=== PATIENT | male | born 1945 | race Caucasian/White ===

== ENCOUNTER 2020-05-29 16:41 | Emergency (ER) | payer MEDICARE, BC ==
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
[2020-05-29 21:39] VITALS: BP 135/82
== END 2020-05-29 20:45 | disposition left against medical advice (07) ==
LOC: ER 16:41
DX: S01.111A Laceration without foreign body of right eyelid and periocular area, initial encounter (principal); S09.90XA Unspecified injury of head, initial encounter; S19.9XXA Unspecified injury of neck, initial encounter; S80.211A Abrasion, right knee, initial encounter; S60.511A Abrasion of right hand, initial encounter; S49.91XA Unspecified injury of right shoulder and upper arm, initial encounter; V18.4XXA Pedal cycle driver injured in noncollision transport accident in traffic accident, initial encounter; Y93.55 Activity, bike riding
CPT/HCPCS: 70450; 70486; 72125; 99284